=== PATIENT | female | born 1955 | race Caucasian/White ===

== ENCOUNTER → 2016-04-25 | Outpatient (CLI) | payer BC, OTHER ==
[~2016-04-25] MED LIST: DRV100 PO; ESCI10TA17; ESOM20CA; HYDC25; SPIR25TA
[2016-04-25 12:29] LABS: HEMATOCRIT 44.5 % (37-47); MEAN CELL VOLUME 81.8 fL (80-100); MEAN CORPUSCULAR HEMOGLOBIN 28.1 pg (25-34); MEAN CORPUSCULAR HGB CONC 34.4 g/dl (32-36); MEAN PLATELET VOLUME 9.3 fL (7.4-10.4); PLATELET COUNT 314 K/uL (130-400); RED BLOOD COUNT 5.44 M/uL (4.2-5.4); WHITE BLOOD COUNT 7.59 K/uL (4.8-10.8)
[2016-04-25 13:44] LABS: ESTIMATED AVERAGE GLUCOSE 157 mg/dl; HA1C FLAG Normal (Normal)
[2016-04-25 17:12] LABS: ALT/SGPT 37 U/L (12-78); AST/SGOT 19 U/L (15-37); BLOOD UREA NITROGEN 19 mg/dl (7-18); BUN/CREATININE RATIO 19.9 (10-20); CALCIUM 9.4 mg/dl (8.5-10.1); CARBON DIOXIDE 28 mmol/L (21-32); CHLORIDE 102 mmol/L (98-107); CREATININE 0.97 mg/dl (0.60-1.20); GLUCOSE 155 mg/dl (70-99); POTASSIUM 3.9 mmol/L (3.5-5.1); SODIUM 140 mmol/L (136-145)
[2016-04-25 17:16] LABS: ALB/GLOB RATIO 1.2 (0.9-2); ALKALINE PHOSPHATASE 79 U/L (45-117); CHOLESTEROL 171 mg/dl (0-200); HDL CHOLESTEROL 43 mg/dl; LDL CHOLESTEROL CALCULATED 85 mg/dl; TRIGLYCERIDES 217 mg/dl (0-150); VERY LOW DENSITY LIPOPROT CALC 43 mg/dl
== END | disposition home or self-care (01) ==
LOC: C.LABBFT 08:33
PROVIDERS: ATTEND Internal Medicine
DX: E78.00 Pure hypercholesterolemia, unspecified (principal); I10 Essential (primary) hypertension; E87.6 Hypokalemia; E11.65 Type 2 diabetes mellitus with hyperglycemia

== ENCOUNTER → 2016-06-28 | Outpatient (CLI) | payer OTHER ==
--- NOTE | 2016-06-28 15:32 | DIAGNOSTIC IMAGING REPORT ---
LUMBAR SPINE 5 VIEWS CLINICAL HISTORY: Low back pain. FINDINGS: Five views of the lumbar spine are obtained. No prior studies are available for comparison at the time of dictation. The skeletal structures are osteopenic. There is no radiographic evidence of fracture or malalignment. Vertebral body height and alignment are maintained throughout the lumbar spine. The transverse and spinous processes appear intact. There is no evidence of spondylolysis. Anterior osteophytes are seen throughout. Moderate facet arthropathy is noted in the lower lumbar region. Moderate degenerative disc space narrowing is seen at L5-S1. Mild narrowing is seen at the remaining lumbar levels. The bony pelvis is intact as visualized. Sclerotic change is noted in the sacroiliac joints. There is a nonobstructed abdominal bowel gas pattern. IMPRESSION: 1. No acute bony abnormalities seen involving the lumbosacral spine. 2. Osteopenia and mild lumbosacral spondylosis as above. Dictated: 06/28/2016 3:21 PM Transcribed: 06/28/2016 3:31 PM [facility] Electronically signed by: Colin Robb M.D. 06/28/2016 3:37 PM Dictated Date/Time: 06/28/2016 3:21 PM
== END | disposition home or self-care (01) ==
LOC: C.RAD1850 15:06
PROVIDERS: ATTEND Internal Medicine
DX: M54.5 Low back pain (principal); M47.897 Other spondylosis, lumbosacral region

== ENCOUNTER → 2016-12-03 | Outpatient (CLI) | payer OTHER ==
[2016-12-03 12:38] LABS: ESTIMATED AVERAGE GLUCOSE 166 mg/dl; HA1C FLAG Normal (Normal)
[2016-12-03 12:57] LABS: ALB/GLOB RATIO 1.1 (0.9-2); AST/SGOT 21 U/L (15-37); BLOOD UREA NITROGEN 17 mg/dl (7-18); BUN/CREATININE RATIO 17.2 (10-20); CALCIUM 9.2 mg/dl (8.5-10.1); CARBON DIOXIDE 30 mmol/L (21-32); CHLORIDE 102 mmol/L (98-107); CREATININE 0.96 mg/dl (0.60-1.20); GLUCOSE 167 mg/dl (70-99); POTASSIUM 3.5 mmol/L (3.5-5.1); SODIUM 138 mmol/L (136-145)
[2016-12-03 13:07] LABS: ALKALINE PHOSPHATASE 82 U/L (45-117); ALT/SGPT 38 U/L (12-78); CHOLESTEROL 144 mg/dl (0-200); CHOLESTEROL/HDL RATIO 4.1; HDL CHOLESTEROL 35 mg/dl; LDL CHOLESTEROL CALCULATED 64 mg/dl; TRIGLYCERIDES 223 mg/dl (0-150); VERY LOW DENSITY LIPOPROT CALC 45 mg/dl
== END | disposition home or self-care (01) ==
LOC: C.LABBFT 08:39
PROVIDERS: ATTEND Internal Medicine
DX: E11.65 Type 2 diabetes mellitus with hyperglycemia (principal)

== ENCOUNTER → 2016-12-13 | Outpatient (CLI) | payer OTHER ==
--- NOTE | 2016-12-13 15:40 | DIAGNOSTIC IMAGING REPORT ---
SOFT TISS HEAD/NECK-THYROID CLINICAL HISTORY: 61 years-old Female presenting with right neck mass.. TECHNIQUE: Real-time grayscale and color Doppler ultrasound imaging of the neck was performed. COMPARISON: None. FINDINGS: At the site of clinical concern in the posterior neck, no well-defined isoechoic 1.5 x 2.0 x 0.6 cm ovoid region is demarcated, which is the same echogenicity as adjacent fat. This may be within muscle. No hyperemia on color Doppler. IMPRESSION: Apparent ovoid region in the posterior soft tissues of the neck which is the same echogenicity as adjacent fat. This may represent a lipoma, and the images suggest an intramuscular location. If there is continuing clinical concern, contrast enhanced MRI of the neck would better characterize this lesion. Electronically signed by: Varun Kyle M.D. 12/13/2016 3:39 PM Dictated Date/Time: 12/13/2016 3:36 PM
== END | disposition home or self-care (01) ==
LOC: C.ULTR 15:09
PROVIDERS: ATTEND Physician Assistant Medical
DX: R22.1 Localized swelling, mass and lump, neck (principal)

== ENCOUNTER → 2017-02-07 | Outpatient (CLI) | payer OTHER ==
[~2017-02-07] MED LIST changes: +OPTIRAY 320 IV PRN
--- NOTE | 2017-02-07 15:39 | DIAGNOSTIC IMAGING REPORT ---
CHEST CTA for AORTIC DISSECTION CT DOSE: 1187.64 mGy.cm HISTORY: The ascending aorta dilatation. TECHNIQUE: Multiaxial CT images of the chest were performed both before and after the intravenous administration of contrast to evaluate the aorta. Maximal intensity projection images were also obtained. A dose lowering technique was utilized adhering to the principles of ALARA. COMPARISON STUDY: None. FINDINGS: Noncontrast imaging through the thoracic aorta shows no evidence for an intramural hematoma. No evidence for an aortic dissection. The ascending thoracic aorta measures up to 4.1 cm in diameter. The descending thoracic aorta is normal in caliber. The central pulmonary arteries are patent. Hepatic steatosis. The visualized spleen is unremarkable. 5 mm hypodense nodule within the left thyroid lobe. No mediastinal or hilar lymphadenopathy. No suspicious lytic or blastic osseous lesions. No pneumothorax. The central airways are patent. No pleural effusions. The lungs are clear. IMPRESSION: Mild aneurysmal dilatation of the ascending thoracic aorta which measures up to 4.1 cm in diameter. Electronically signed by: Shashi Stone M.D. 02/07/2017 3:38 PM Dictated Date/Time: 02/07/2017 3:30 PM
== END | disposition home or self-care (01) ==
LOC: C.CTS 15:06
PROVIDERS: ATTEND Physician Assistant Medical
DX: I77.810 Thoracic aortic ectasia (principal)

== ENCOUNTER → 2017-05-02 | Outpatient (CLI) | payer OTHER ==
[~2017-05-02] MED LIST changes: -OPTIRAY 320 IV PRN
--- NOTE | 2017-05-05 07:45 | MAMMOGRAPHY REPORT ---
BILATERAL DIGITAL SCREENING MAMMOGRAM TOMOSYNTHESIS WITH CAD: 05/02/2017 CLINICAL HISTORY: Routine screening. Patient has no complaints. TECHNIQUE: Breast tomosynthesis in addition to standard 2D mammography was performed. Current study was also evaluated with a Computer Aided Detection (CAD) system. COMPARISON: Comparison is made to exams dated: 03/22/2016 mammogram, 11/18/2014 mammogram, 08/25/2013 ma mmogram, 07/28/2012 mammogram, 06/27/2010 ultrasound, and 06/27/2010 mammogram - [facility] enter. BREAST COMPOSITION: There are scattered areas of fibroglandular density in both breasts. FINDINGS: No suspicious masses, calcifications, or areas of architectural distortion are noted in ei ther breast. There has been no significant interval change compared to prior exams. Scattered bilater al benign-appearing calcifications are not significantly changed. IMPRESSION: ACR BI-RADS CATEGORY 2: BENIGN There is no mammographic evidence of malignancy. A 1 year screening mammogram is recommended. The pa tient will receive written notification of the results. Approximately 10% of breast cancers are not detected with mammography. A negative mammographic report should not delay biopsy if a clinically suggestive mass is present. Marina Faust M.D. /:05/02/2017 15:20:55 Admissions Specialist: Sayda HARRIS)([place]), [facility] letter sent: Normal 1/2 BI-RADS Code: ACR BI-RADS Category 2: Benign
== END | disposition home or self-care (01) ==
LOC: C.MAMM 14:32
PROVIDERS: ATTEND Internal Medicine
DX: Z12.31 Encounter for screening mammogram for malignant neoplasm of breast (principal)

== ENCOUNTER → 2017-06-20 | Outpatient (CLI) | payer OTHER ==
[2017-06-20 16:46] LABS: ALBUMIN 3.9 gm/dl (3.4-5.0); ALT/SGPT 34 U/L (12-78); AST/SGOT 21 U/L (15-37); BLOOD UREA NITROGEN 17 mg/dl (7-18); CARBON DIOXIDE 28 mmol/L (21-32); CHOLESTEROL 166 mg/dl (0-200); CREATININE 0.93 mg/dl (0.60-1.20); GLUCOSE 129 mg/dl (70-99); POTASSIUM 3.1 mmol/L (3.5-5.1); SODIUM 137 mmol/L (136-145)
[2017-06-20 16:56] LABS: ALKALINE PHOSPHATASE 98 U/L (45-117); LDL CHOLESTEROL (DIRECT) 112 mg/dl; TOTAL PROTEIN 7.7 gm/dl (6.4-8.2)
[2017-06-21 08:09] LABS: HEMOGLOBIN A1C 7.4 % (4.5-5.6)
== END | disposition home or self-care (01) ==
LOC: C.LABBFT 15:18
PROVIDERS: ATTEND Internal Medicine
DX: E78.00 Pure hypercholesterolemia, unspecified (principal); I10 Essential (primary) hypertension; E11.65 Type 2 diabetes mellitus with hyperglycemia